=== PATIENT | male | born 1950 | race Caucasian/White ===

== ENCOUNTER → 2023-12-21 10:13 | Outpatient (REF) | payer MEDICARE, OTHER, SELFPAY | LOC: MRI 3T 10:13 | PROVIDERS: ATTENDING PHYSICIAN Physician Assistant; FAMILY PHYSICIAN Family Medicine | DX: M25.562 Pain in left knee (principal) | CPT/HCPCS: 73721 ==

== ENCOUNTER → 2024-02-03 11:15 | Outpatient (REF) | payer MEDICARE, OTHER, SELFPAY ==
[2024-02-03 12:21] LABS: % Basophils 0.4 % (0-2); % Eosinophils 1.2 % (0-6); % Immature Granulocytes 0.4 % (0-0.5); % Lymphocytes 22.1 % (20.5-51.1); % Monocytes 9.6 % (1.7-9.3); % Neutrophils 66.3 % (42.2-75.2); Absolute Eosinophils 0.1 10^3/uL (0-0.7); Absolute Lymphocytes 1.2 10^3/uL (1.2-3.4); Absolute Monocytes 0.5 10^3/uL (0.1-0.6); Absolute Neutrophils 3.5 10^3/uL (1.4-6.5); Hematocrit 44.3 % (39.0-52.0); Hemoglobin 14.9 g/dL (13.0-18.0); Mean Corp Hgb Conc. 33.6 g/dL (33.0-37.0); Mean Corpuscular Hgb 29.6 pg (27.0-31.0); Mean Corpuscular Volume 87.9 fL (80.0-94.0); Mean Platelet Volume 10.4 fL (7.4-10.4); Nucleated Red Blood Cells % 0 % (-); Platelet Count 213 10^3/uL (130-400); Red Blood Cell Count 5.04 10^6/uL (4.70-6.10); Red Cell Dist. Width 13.5 % (11.5-14.5); White Blood Cell Count 5.2 10^3/uL (4.8-10.8)
[2024-02-03 14:17] LABS: Blood Urea Nitrogen 24 mg/dl (9-20); Calcium 9.4 mg/dl (8.4-10.2); Carbon Dioxide 30 mmol/L (22-30); Chloride 104 mmol/L (98-107); Glucose 74 mg/dl (70-99); Potassium 4.8 mmol/L (3.5-5.1); Sodium 139 mmol/L (135-145); eGFR > 60.00
== END ==
LOC: RCS 11:15
PROVIDERS: ATTENDING PHYSICIAN Specialist; FAMILY PHYSICIAN Family Medicine
DX: Z01.818 Encounter for other preprocedural examination (principal)
CPT/HCPCS: 36415; 80048; 85025; 93005

== ENCOUNTER → 2024-05-14 10:27 | Outpatient (REF) | payer MEDICARE, OTHER, SELFPAY ==
[2024-05-14 14:22] LABS: Lyme Antibody Screen, EIA Negative (Negative)
== END ==
LOC: REG 10:27
PROVIDERS: ATTENDING PHYSICIAN Physician Assistant; FAMILY PHYSICIAN Family Medicine
DX: M25.462 Effusion, left knee (principal)
CPT/HCPCS: 36415; 86618; 87476

== ENCOUNTER → 2024-05-17 09:27 | Outpatient (REF) | payer MEDICARE, OTHER, SELFPAY ==
[2024-05-17 11:05] LABS: % Basophils 0.5 % (0-2); % Eosinophils 0.3 % (0-6); % Immature Granulocytes 0.3 % (0-0.5); % Lymphocytes 30.9 % (20.5-51.1); % Monocytes 9.8 % (1.7-9.3); % Neutrophils 58.2 % (42.2-75.2); Absolute Lymphocytes 1.8 10^3/uL (1.2-3.4); Absolute Monocytes 0.6 10^3/uL (0.1-0.6); Absolute Neutrophils 3.5 10^3/uL (1.4-6.5); Hematocrit 42.4 % (39.0-52.0); Hemoglobin 14.2 g/dL (13.0-18.0); Mean Corp Hgb Conc. 33.5 g/dL (33.0-37.0); Mean Corpuscular Hgb 29.3 pg (27.0-31.0); Mean Corpuscular Volume 87.4 fL (80.0-94.0); Mean Platelet Volume 10.6 fL (7.4-10.4); Nucleated Red Blood Cells % 0 % (-); Platelet Count 216 10^3/uL (130-400); Red Blood Cell Count 4.85 10^6/uL (4.70-6.10); Red Cell Dist. Width 13.5 % (11.5-14.5); White Blood Cell Count 5.9 10^3/uL (4.8-10.8)
[2024-05-17 11:07] LABS: ALT (SGPT) 29 U/L (0-50); AST (SGOT) 26 U/L (17-59); Albumin 3.8 g/dl (3.5-5.0); Alkaline Phosphatase 53 U/L (38-126); Blood Urea Nitrogen 22 mg/dl (9-20); Calcium 8.8 mg/dl (8.4-10.2); Carbon Dioxide 27 mmol/L (22-30); Chloride 103 mmol/L (98-107); Glucose 89 mg/dl (70-99); HDL Cholesterol 98 mg/dl; LDL Cholesterol, Calculated 67 mg/dl; Sodium 140 mmol/L (135-145); Total Bilirubin 0.6 mg/dl (0.2-1.3); Total Cholesterol 177 mg/dl (50-199); Total Protein 6.2 g/dl (6.3-8.2); Triglyceride 63 mg/dl (10-149); Very Low Density Lipoprotein 12 mg/dl (0-30); eGFR > 60.00
[2024-05-17 11:25] LABS: Vitamin D, 25-OH*** 48.9 ng/mL (30-80)
[2024-05-17 11:38] LABS: TSH 3.03 uIU/ml (0.47-4.68)
[2024-05-19 00:53] LABS: PSA Total 4.5 ng/mL (0.0-4.0)
== END ==
LOC: REG 09:27
PROVIDERS: ATTENDING PHYSICIAN Family Medicine
DX: Z00.00 Encounter for general adult medical examination without abnormal findings (principal); Z80.42 Family history of malignant neoplasm of prostate; E78.00 Pure hypercholesterolemia, unspecified; N18.2 Chronic kidney disease, stage 2 (mild); N40.0 Benign prostatic hyperplasia without lower urinary tract symptoms; E55.9 Vitamin D deficiency, unspecified
CPT/HCPCS: 36415; 80053; 80061; 82306; 84153; 84154; 84443; 85025

== ENCOUNTER → 2024-05-21 15:58 | Outpatient (REF) | payer MEDICARE, OTHER, SELFPAY | LOC: PAVMRI 15:58 | PROVIDERS: ATTENDING PHYSICIAN Physician Assistant; FAMILY PHYSICIAN Family Medicine | DX: M25.562 Pain in left knee (principal) | CPT/HCPCS: 73721 ==

== ENCOUNTER → 2024-07-03 07:11 | Outpatient (REF) | payer MEDICARE, OTHER, SELFPAY | LOC: RCS 07:11 | PROVIDERS: ATTENDING PHYSICIAN Internal Medicine Critical Care Medicine; FAMILY PHYSICIAN Family Medicine | DX: R01.1 Cardiac murmur, unspecified (principal) | CPT/HCPCS: 93306 ==

== ENCOUNTER 2024-07-15 08:43 | Emergency (ER) | payer MEDICARE, OTHER, SELFPAY ==
[2024-07-15] VITALS (10 sets, daily range): BP systolic 161–207; BP diastolic 77–112; BMI 34.4
[2024-07-15 09:31] LABS: Hematocrit 47.1 % (39.0-52.0); Mean Corpuscular Hgb 29.6 pg (27.0-31.0); Mean Corpuscular Volume 87.1 fL (80.0-94.0); Mean Platelet Volume 10.1 fL (7.4-10.4); Platelet Count 200 10^3/uL (130-400); Red Blood Cell Count 5.41 10^6/uL (4.70-6.10); Red Cell Dist. Width 13.2 % (11.5-14.5); White Blood Cell Count 4.6 10^3/uL (4.8-10.8)
--- NOTE | 2024-07-15 09:38 | ED.GENMED ---
History of Present Illness
General
Chief Complaint: Blood Pressure Problem
Source: patient
Exam Limitations: none
Time Seen by Provider: 07/15/24 08:54
History of Present Illness
History of Present Illness:
73-year-old male presents complaining of elevated blood pressure readings headache and left arm tingling. Blood pressure has been slowly increasing over the past week. He was getting values overnight of 213/113. He denies chest pain or shortness
of breath he is due for left knee replaced in 4 days. He is not currently on any medication for high blood pressure. He recently saw his family doctor who prescribed him lisinopril but to be started after the surgery. He states he also lost his
several months ago. He notes he has ongoing left knee pain of which he was taking meloxicam for but stopped this 10 days ago.
Past History
Past History
ED Past Medical History: Hypercholesterolemia
ED Past Surgical History: Other (hernia)
Social History
Tobacco: Non-smoker
Alcohol: None
Drug: None
Personal:
Living: with family
Employment: Employed
Family History
Family History: Hypertension
Phy Exam
Physical Exam
Physical Exam:
General: Well-appearing male no acute respiratory distress
HEENT: Normocephalic atraumatic
Heart: Regular rate and rhythm no murmurs
Lungs: Clear no wheeze
Extremities: Mild edema bilateral lower extremities
Neurologic: Alert and oriented facial asymmetry is not noted conversing appropriately. Check to paresthesias to left arm but motor intact to both upper and lower extremities
Skin is warm no rash
Course
Orders/Labs/Results
Orders:
Orders
07/15/24 08:53
EKG [Electrocardiogram (*1)] Urgent
Reason for Study: Hypertension, Benign
EKG- Treatment ONCE
07/15/24 09:15
Troponin I Urgent
07/15/24 09:19
CMP [Comprehensive Metabolic Panel] Urgent
Complete Blood Count/No Diff Urgent
07/15/24 09:36
CT Head W/o Iv Contrast Urgent
Comment:
Reason For Exam: headache, dizzy, elevated BP
Abnormal Lab Results
07/15/24
09:19
WBC 4.6 L 10^3/uL
(4.8-10.8)
Glucose 103 H mg/dl
(70-99)
07/15/24 09:19
07/15/24 09:19
Vital Signs
Initial and Last Documented VS:
Initial Vital Signs
Temp Pulse Resp BP Pulse Ox
98.3 F 72 18 207/112 99
07/15/24 08:50 07/15/24 08:50 07/15/24 08:50 07/15/24 08:50 07/15/24 08:50
Last Documented Vital Signs
Temp Pulse Resp BP Pulse Ox
98.3 F 59 23 179/91 99
07/15/24 08:50 07/15/24 11:30 07/15/24 11:30 07/15/24 11:30 07/15/24 08:50
MDM/Problems Addressed
Differential Diagnosis Includes:
Headache with left arm tingling no objective deficit on exam in the setting of hypertension. Question hypertensive involvement versus on likely TIA versus stress response.
Will recheck blood pressures. EKG pending labs ordered including troponin. Given headache and paresthesias will order CT of head
*Critical Care Note
Total Time (30-74mins, 75-104mins- exclusive of procedures): Not Applicable
Update Note
Update Note:
Patient reexamined multiple times. Blood pressure is improved. CT negative workup otherwise negative. No indication of CVA or TIA. He has lisinopril that was filled by his family doctor. I advise he take this after running advised orthopedic
team secondary to his planned knee replacement
ED Attending Note
-
Portions of this chart may have been created with voice recognition software.� Occasional wrong word or��sound alike� substitutions may have occurred due to the inherent limitations of voice recognition software.
Discharge Plan
Departure
Patient Disposition: Home (Routine Discharge)
Date of Disposition: 07/15/24
Time of Disposition: 12:41
Patient with high blood pressure during this ER visit?: No
Discharge Problem:
Hypertension
Instructions: High Blood Pressure (DC)
Prescriptions:
No Action
fluticasone propionate 1 SPRAY spray,suspension
1 spray intranasal HS
atorvastatin [Lipitor] 40 mg Tablet
40 mg PO DAILY
fluticasone propionate [Flovent HFA] 110 mcg/actuation Hfa Aerosol Inhaler
2 puff INHALATION DAILY
aspirin 81 mg Tablet,Delayed Release (Dr/Ec)
81 mg PO DAILY
lisinopril
1 tab PO DAILY
Patient Comments:
newly prescribed- not started until post op knee surgery next week
Referrals:
Mike Sosa, DO [Family Provider] -
Activity Restrictions/Additional Instructions:
Start your lisinopril. Follow-up with your doctors. Return if needed otherwise
Interventions
Interventions:
*Risk Screen - Suicide Last Done: 07/15/24 08:50
*General Assessment Last Done: 07/15/24 08:50
*Neglect/Abuse Screening Last Done: 07/15/24 08:50
ED- Fall Risk Assessment Last Done: 07/15/24 09:18
*ED COVID-19 Vaccine History Last Done: 07/15/24 08:50
ED- Cardiac Assessment Last Done: 07/15/24 09:15
ED- Neurological Assessment Last Done: 07/15/24 09:16
ED- Pulmonary Assessment Last Done: 07/15/24 09:18
Discharge Date and Time
Print Language: HEBREW
[2024-07-15 09:41] LABS: ALT (SGPT) 29 U/L (0-50); AST (SGOT) 28 U/L (17-59); Albumin 4.4 g/dl (3.5-5.0); Alkaline Phosphatase 66 U/L (38-126); Blood Urea Nitrogen 15 mg/dl (9-20); Calcium 9.1 mg/dl (8.4-10.2); Carbon Dioxide 26 mmol/L (22-30); Chloride 106 mmol/L (98-107); Estimated Creatinine Clearance 110 ml/min; Glucose 103 mg/dl (70-99); Potassium 3.7 mmol/L (3.5-5.1); Sodium 142 mmol/L (135-145); Total Bilirubin 0.9 mg/dl (0.2-1.3); eGFR > 60.00
[2024-07-15 10:15] LABS: Troponin I < 0.012 ng/ml
== END 2024-07-15 13:09 | disposition home or self-care (01) ==
LOC: EMR 08:43
PROVIDERS: Physician Assistant; EMERGENCY PHYSICIAN Emergency Medicine; FAMILY PHYSICIAN Family Medicine
DX: I10 Essential (primary) hypertension (principal); E78.00 Pure hypercholesterolemia, unspecified; R20.2 Paresthesia of skin
CPT/HCPCS: 99284; 70450; 80053; 84484; 85027; 93005

== ENCOUNTER 2024-07-19 06:12 | Day surgery (SDC) | payer MEDICARE, OTHER, SELFPAY ==
[2024-06-23 11:09] LABS: Hematocrit 47.3 % (39.0-52.0); Hemoglobin 15.4 g/dL (13.0-18.0); Mean Corp Hgb Conc. 32.6 g/dL (33.0-37.0); Mean Corpuscular Hgb 29.7 pg (27.0-31.0); Mean Corpuscular Volume 91.3 fL (80.0-94.0); Mean Platelet Volume 10.2 fL (7.4-10.4); Platelet Count 204 10^3/uL (130-400); Red Blood Cell Count 5.18 10^6/uL (4.70-6.10); Red Cell Dist. Width 13.4 % (11.5-14.5); White Blood Cell Count 4.8 10^3/uL (4.8-10.8)
[2024-06-23 12:09] LABS: ALT (SGPT) 32 U/L (0-50); AST (SGOT) 32 U/L (17-59); Alkaline Phosphatase 56 U/L (38-126); Blood Urea Nitrogen 22 mg/dl (9-20); Calcium 9.3 mg/dl (8.4-10.2); Carbon Dioxide 30 mmol/L (22-30); Chloride 106 mmol/L (98-107); Glucose 94 mg/dl (70-99); Potassium 4.7 mmol/L (3.5-5.1); Sodium 144 mmol/L (135-145); Total Bilirubin 0.6 mg/dl (0.2-1.3); Total Protein 6.4 g/dl (6.3-8.2); eGFR > 60.00
[2024-06-23 13:20] VITALS: BMI 34.7
[2024-06-23 15:44] LABS: Glycohemoglobin (HgbA1c) 5.4 % (4.0-5.6)
--- NOTE | 2024-07-05 12:57 | VNURNOTE ---
Patient is scheduled for an elective L TKR on 07/19/24- he is a same day patient with Dr Yeager. Spoke with patient prior to surgery. Introduced role of [facility] Liaison. Patient reports that he lives in a MULTI story home.
There are 2 steps to enter and a flight of steps to the second floor.
He has a bathroom and a recliner on the first floor. He currently functions independently. He has a ice packs and a rolling walker. He ordered a cane and VTE machine.
PCP is Dr Sosa.
Discussed [facility] joint protocol and post surgical plans.
Reviewed that he will have VN services initially and will then start outpatient PT.
Patient will go to [facility] for outpatient PT. Scheduled for 07/22.
Patient is in agreement with plan and states that his son and granddaughter will be home with him. Advised to bring RW with him day of surgery. Referral placed in [facility].
Plan: [facility] per [facility] joint protocol then outpt PT on 07/22
[2024-07-19] VITALS (11 sets, daily range): BP systolic 119–171; BP diastolic 71–93; PULSE 60; O2SAT 97; BMI 34.7
[2024-07-19] MEDS: NORMOSOL-R/PLASMALYTE-A 1000 IV (06:37)
[2024-07-19] MEDS: MOBIC 15 MG PO (06:37)
[2024-07-19] MEDS: TYLENOL 650 MG PO (06:37)
--- NOTE | 2024-07-19 06:55 | W.DS.TRANS ---
DC Summary - Dental Internship
-
Discharge Instructions:
Sleep Apnea Risk Intermediate
Discharge Diagnosis/Procedures Left knee replacement Dr. Yeager 07/19/24
Diet As tolerated
Activity With assistance,With Walker
Driving Restrictions No driving
Bathing Restrictions OK to Shower
Other Services PT
Wound Care Aquacel in place 7-10 days then incision open to
air
Instructions:
Stand-Alone Forms: Total Hip/Knee Replacement D/C
Changes to Home Medications: Yes
Discharge Medications:
DC Medications w/original date entered in [email or web address]
fluticasone propionate 50 mcg/actuation nasal spray,suspension 1 spray intranasal HS Allergies 07/05/12
aspirin 81 mg tablet,delayed release 81 mg PO DAILY Blood Clot Prevention/Tx 07/13/24
atorvastatin 40 mg tablet (Lipitor) 40 mg PO DAILY High Cholesterol 07/13/24
fluticasone propionate 110 mcg/actuation HFA aerosol inhaler 2 puff inhalation DAILY Lung/Breathing Issues 07/13/24
lisinopril 10 mg tablet 10 mg PO DAILY Blood Pressure 07/15/24
acetaminophen 500 mg tablet 1,000 mg (2 x 500 mg) PO QID #0 tabs 07/19/24
ascorbic acid (vitamin C) 500 mg tablet (Vitamin C) 1,000 mg PO DAILY 07/19/24
aspirin 325 mg tablet 325 mg PO DAILY #30 tabs 07/19/24
calcium 600 mg capsule 600 mg PO DAILY 07/19/24
celecoxib 100 mg capsule (Celebrex) 100 mg PO BID #30 caps 07/19/24
dexamethasone 4 mg tablet 4 mg PO BID #7 tabs 07/19/24
docusate sodium 100 mg capsule (Colace) 100 mg PO BID #14 caps 07/19/24
magnesium 200 mg tablet 400 mg PO DAILY 07/19/24
multivitamin 1 tab PO DAILY 07/19/24
mupirocin 2 % topical ointment 1 applic topical BID 07/19/24
ondansetron 4 mg disintegrating tablet 4 mg PO Q8H #14 tabs 07/19/24
oxycodone 5 mg tablet 5 mg PO Q6H PRN Pain #30 tabs 07/19/24
potassium gluconate 550 mg tablet 1 meq PO DAILY 07/19/24
pseudoephedrine sulfate 120 mg tablet,extended release 120 mg PO Q12H PRN nasal congestion 07/19/24
sennosides 8.6 mg tablet (Senokot) 8.6 mg PO BID PRN Constipation #14 tabs 07/19/24
Home Medication Changes
aspirin 325 mg tablet 325 mg PO DAILY #30 tabs 07/19/24
calcium 600 mg capsule 600 mg PO DAILY 07/19/24
celecoxib 100 mg capsule (Celebrex) 100 mg PO BID #30 caps 07/19/24
dexamethasone 4 mg tablet 4 mg PO BID #7 tabs 07/19/24
docusate sodium 100 mg capsule (Colace) 100 mg PO BID #14 caps 07/19/24
magnesium 200 mg tablet 400 mg PO DAILY 07/19/24
multivitamin 1 tab PO DAILY 07/19/24
mupirocin 2 % topical ointment 1 applic topical BID 07/19/24
ondansetron 4 mg disintegrating tablet 4 mg PO Q8H #14 tabs 07/19/24
oxycodone 5 mg tablet 5 mg PO Q6H PRN Pain #30 tabs 07/19/24
potassium gluconate 550 mg tablet 1 meq PO DAILY 07/19/24
pseudoephedrine sulfate 120 mg tablet,extended release 120 mg PO Q12H PRN nasal congestion 07/19/24
sennosides 8.6 mg tablet (Senokot) 8.6 mg PO BID PRN Constipation #14 tabs 07/19/24
Pending Results: No
[2024-07-19] MEDS: ANCEF 5 IV (11:21)
== END 2024-07-19 12:11 | disposition home or self-care (01) ==
LOC: SDS 06:12
PROVIDERS: ATTENDING PHYSICIAN Specialist; FAMILY PHYSICIAN Family Medicine
DX: M17.12 Unilateral primary osteoarthritis, left knee (principal); E66.9 Obesity, unspecified; Z68.35 Body mass index [BMI] 35.0-35.9, adult
CPT/HCPCS: 27447; 36415; 73560; 80053; 83036; 85027; 87070; 93005; 97116; 97162; C1713; C1776

== ENCOUNTER → 2024-08-26 17:52 | Outpatient (REF) | payer MEDICARE, OTHER, SELFPAY | LOC: CLAB 17:52 | PROVIDERS: ATTENDING PHYSICIAN Otolaryngology | DX: R22.1 Localized swelling, mass and lump, neck (principal) | CPT/HCPCS: 88173 ==

== ENCOUNTER → 2024-09-03 07:25 | Outpatient (REF) | payer MEDICARE, OTHER, SELFPAY | LOC: MRI 07:25 | PROVIDERS: ATTENDING PHYSICIAN Otolaryngology; FAMILY PHYSICIAN Family Medicine | DX: R22.1 Localized swelling, mass and lump, neck (principal) | CPT/HCPCS: 70543; A9575 ==

== ENCOUNTER → 2024-11-03 11:18 | Outpatient (REF) | payer MEDICARE, OTHER, SELFPAY ==
[2024-11-06 05:13] LABS: PSA Total 5.2 ng/mL (0.0-4.0)
== END ==
LOC: REG 11:18
PROVIDERS: ATTENDING PHYSICIAN Family Medicine
DX: R97.20 Elevated prostate specific antigen [PSA] (principal)
CPT/HCPCS: 36415; 84153; 84154

== ENCOUNTER → 2024-12-29 17:01 | Outpatient (REF) | payer MEDICARE, OTHER, SELFPAY | LOC: RAD 17:01 | PROVIDERS: ATTENDING PHYSICIAN Urology; FAMILY PHYSICIAN Family Medicine | DX: N40.1 Benign prostatic hyperplasia with lower urinary tract symptoms (principal); N13.8 Other obstructive and reflux uropathy; R35.0 Frequency of micturition; R39.15 Urgency of urination | CPT/HCPCS: 76770 ==

== ENCOUNTER → 2025-05-24 08:12 | Outpatient (REF) | payer MEDICARE, OTHER, SELFPAY ==
[2025-05-24 09:01] LABS: Hematocrit 45.4 % (39.0-52.0); Hemoglobin 14.6 g/dL (13.0-18.0); Mean Corp Hgb Conc. 32.2 g/dL (33.0-37.0); Mean Corpuscular Volume 92.3 fL (80.0-94.0); Nucleated Red Blood Cells % 0 % (-); Platelet Count 188 10^3/uL (130-400); Red Cell Dist. Width 14.0 % (11.5-14.5)
[2025-05-24 09:20] LABS: Glycohemoglobin (HgbA1c) 5.4 % (4.0-5.6)
[2025-05-24 09:36] LABS: ALT (SGPT) 27 U/L (0-50); AST (SGOT) 26 U/L (17-59); Albumin 3.9 g/dl (3.5-5.0); Alkaline Phosphatase 56 U/L (38-126); Blood Urea Nitrogen 14 mg/dl (9-20); Calcium 9.1 mg/dl (8.4-10.2); Carbon Dioxide 30 mmol/L (22-30); Chloride 107 mmol/L (98-107); Glucose 104 mg/dl (70-99); HDL Cholesterol 102 mg/dl; LDL Cholesterol, Calculated 70 mg/dl; Potassium 4.8 mmol/L (3.5-5.1); Sodium 137 mmol/L (135-145); Total Protein 6.6 g/dl (6.3-8.2); Very Low Density Lipoprotein 10 mg/dl (0-30); eGFR > 60.00
[2025-05-24 09:48] LABS: Vitamin D, 25-OH*** 51.2 ng/mL (30-80)
[2025-05-24 10:01] LABS: PSA, Total - Screen 4.01 ng/ml (0.0-4.0); TSH 5.20 uIU/ml (0.47-4.68)
== END ==
LOC: REG 08:12
PROVIDERS: ATTENDING PHYSICIAN Family Medicine
DX: N40.0 Benign prostatic hyperplasia without lower urinary tract symptoms (principal); N18.2 Chronic kidney disease, stage 2 (mild); I10 Essential (primary) hypertension; E78.00 Pure hypercholesterolemia, unspecified; E55.9 Vitamin D deficiency, unspecified; Z00.00 Encounter for general adult medical examination without abnormal findings; Z79.899 Other long term (current) drug therapy; Z12.5 Encounter for screening for malignant neoplasm of prostate
CPT/HCPCS: 36415; 80053; 80061; 82306; 83036; 84443; 85025; G0103

== ENCOUNTER → 2025-05-27 13:01 | Outpatient (REF) | payer MEDICARE, OTHER, SELFPAY | LOC: RAD 13:01 | PROVIDERS: ATTENDING PHYSICIAN Radiology Radiation Oncology; FAMILY PHYSICIAN Family Medicine | DX: Z85.818 Personal history of malignant neoplasm of other sites of lip, oral cavity, and pharynx (principal) | CPT/HCPCS: 70491; Q9967 ==

== ENCOUNTER 2025-06-02 10:07 | Outpatient (RCR) | payer MEDICARE, OTHER, SELFPAY | END 2025-06-02 23:59 | disposition home or self-care (01) | LOC: RPT 10:07 | PROVIDERS: ATTENDING PHYSICIAN Specialist; FAMILY PHYSICIAN Family Medicine | DX: I89.0 Lymphedema, not elsewhere classified (principal); R26.2 Difficulty in walking, not elsewhere classified; Z73.6 Limitation of activities due to disability; M79.605 Pain in left leg; R26.89 Other abnormalities of gait and mobility; Z96.652 Presence of left artificial knee joint | CPT/HCPCS: 97110; 97112; 97140; 97162; 97530 ==

== ENCOUNTER 2025-06-14 11:43 | Outpatient (RCR) | payer MEDICARE, OTHER, SELFPAY | END 2025-06-20 11:30 | disposition home or self-care (01) | LOC: RPT 11:43 | PROVIDERS: ATTENDING PHYSICIAN Specialist; FAMILY PHYSICIAN Family Medicine | DX: I89.0 Lymphedema, not elsewhere classified (principal); C07 Malignant neoplasm of parotid gland (principal); R26.2 Difficulty in walking, not elsewhere classified; L59.8 Other specified disorders of the skin and subcutaneous tissue related to radiation; R29.3 Abnormal posture; M79.605 Pain in left leg; Z73.6 Limitation of activities due to disability; R26.89 Other abnormalities of gait and mobility; Z96.652 Presence of left artificial knee joint | CPT/HCPCS: 97110; 97112; 97140; 97530 ==

== ENCOUNTER 2025-07-01 06:45 | Outpatient (RCR) | payer MEDICARE, OTHER, SELFPAY | END 2025-07-01 23:59 | disposition home or self-care (01) | LOC: RPT 06:45 | PROVIDERS: FAMILY PHYSICIAN Family Medicine | DX: I89.0 Lymphedema, not elsewhere classified (principal); C07 Malignant neoplasm of parotid gland; L59.8 Other specified disorders of the skin and subcutaneous tissue related to radiation; R29.3 Abnormal posture; Z73.6 Limitation of activities due to disability | CPT/HCPCS: 97140; 97163; 97530 ==

== ENCOUNTER 2025-08-02 07:01 | Outpatient (RCR) | payer MEDICARE, OTHER, SELFPAY | END 2025-08-02 23:59 | disposition home or self-care (01) | LOC: RPT 07:01 | PROVIDERS: ATTENDING PHYSICIAN Physician Assistant Medical; FAMILY PHYSICIAN Family Medicine | DX: I89.0 Lymphedema, not elsewhere classified (principal); C07 Malignant neoplasm of parotid gland; L59.8 Other specified disorders of the skin and subcutaneous tissue related to radiation; R29.3 Abnormal posture; Z73.6 Limitation of activities due to disability | CPT/HCPCS: 97110; 97140; 97530 ==